=== PATIENT | male | born 1995 | race Caucasian/White ===

== ENCOUNTER 2018-04-24 17:47 | Emergency (ER) | payer MEDICAID ==
[2018-04-24 17:54] VITALS: BP 132/95
--- NOTE | 2018-04-24 19:08 | EDPHY ---
H & P Time Seen by Provider: 04/24/18 18:50 HPI/ROS: CHIEF COMPLAINT: Rectal pain and bleeding HISTORY OF PRESENT ILLNESS: Patient is a history of having anal fissure in the past although he presents with 1 which is more severe for the last 2-3 days. He had a bowel movement 3 days ago and had rectal pain followed by blood which was bright red in the toilet. This happened yesterday and then again today with a large amount of blood. Not associated with melena or vomiting or abdominal pain. No rectal trauma. No other sites of bleeding. REVIEW OF SYSTEMS: Eye: no change in vision ENT: No sore throat or earache, has noticed a lump on his neck posteriorly for the last 2 weeks. Cardiac: No chest pain Pulmonary: no cough or SOB Abdomen: HPI Musculoskeletal: no back pain Skin: no rash Neuro: no headache Constitutional: no fever : no urinary symptoms A comprehensive 10 point review of systems is otherwise negative aside from elements mentioned in the history of present illness. PAST MEDICAL HISTORY: Negative Social history: Nonsmoker General Appearance: Alert and conversant, cooperative. Eyes: No scleral icterus. ENT, Mouth: Normal mucous membranes. Normal tympanic membranes. 5 mm non painful mobile mass on the posterior cervical chain on the left side. No surrounding redness or tenderness or fluctuance. Respiratory: Normal respiratory effort, breath sounds equal, lungs are clear to auscultation. Cardiovascular: Regular rate and rhythm. Gastrointestinal: Abdomen is soft and non tender. Rectal exam shows anal fissure on the side of the anus near the perineum. Not actively bleeding. No perirectal induration or tenderness. Neurological: Alert, face symmetric, normal motor and sensory in extremities. Skin: Warm and dry, no rashes. Musculoskeletal: No peripheral edema. Psychiatric: Not agitated. Emergency Department course/MDM: Patient has very small neck mass that is more likely to be lymph node or small cyst, warned he needs to follow up in 2 weeks if still present to evaluate by ENT for the possibilities including but not limited to malignancy. Patient has anal fissure and repeat heart rate on my exam is around 80. I do not think clinically he has lost a lot of blood. Suspicion for acute lower GI bleed is low. Smoking Status: Never smoked Constitutional: Initial Vital Signs Temperature (C) 36.5 C 06/13/18 17:50 Heart Rate 112 H 04/24/18 17:50 Respiratory Rate 18 04/24/18 17:50 Blood Pressure 132/95 H 04/24/18 17:50 O2 Sat (%) 97 04/24/18 17:50 O2 Delivery Mode Room Air Allergies/Adverse Reactions: No Known Allergies Allergy (Unverified 08/11/16 15:52) Home Medications: Medication Instructions Recorded NK [No Known Home Meds] 04/24/18 Departure - Departure Disposition: Home, Routine, Self-Care Clinical Impression: Anal fissure Condition: Good Instructions: Anal Fissure (ED) Referrals: Toño Hong MD [Medical Doctor] - As per Instructions (Follow-up with ENT if the lump on your neck is still there in 2 weeks.) Titus Ny MD [Medical Doctor] - As per Instructions (Follow-up next week if you still have rectal pain or bleeding)
== END 2018-04-24 19:20 | disposition home or self-care (01) ==
DX: K60.2 Anal fissure, unspecified (principal)

== ENCOUNTER 2018-05-03 18:19 | Emergency (ER) | payer MEDICAID ==
[2018-05-03 18:23] VITALS: BP 141/88
--- NOTE | 2018-05-03 18:28 | EDPHY ---
H & P Stated Complaint: 2 days ago had intercourse with person who is + chlamydia Time Seen by Provider: 05/03/18 18:28 - Personal History Current Tetanus Diphtheria and Acellular Pertussis (TDAP): Yes - Medical/Surgical History Hx Asthma: No Hx Chronic Respiratory Disease: No Hx Diabetes: No Hx Cardiac Disease: No Hx Renal Disease: No Hx Cirrhosis: No Hx Alcoholism: No Hx HIV/AIDS: No Hx Splenectomy or Spleen Trauma: No Other PMH: Denies. - Social History Smoking Status: Never smoked Constitutional: Initial Vital Signs Temperature (C) 37.2 C 05/03/18 18:21 Heart Rate 108 H 05/03/18 18:21 Respiratory Rate 18 05/03/18 18:21 Blood Pressure 141/88 H 05/03/18 18:21 O2 Sat (%) 97 05/03/18 18:21 O2 Delivery Mode Room Air Allergies/Adverse Reactions: No Known Allergies Allergy (Verified 05/03/18 18:20) Home Medications: Medication Instructions Recorded Doxycycline Hyclate 100 mg PO BID #20 tablet 05/03/18 Medical Decision Making ED Course/Re-evaluation: CHIEF COMPLAINT: Exposure to chlamydia HISTORY OF PRESENT ILLNESS: The patient is a 23 y/o male complaining of exposure to chlamydia. Two days ago he had protected sex with his partner. During this evening he was wearing a condom, but did preform oral sex on his partner. The tip of his unprotected penis also touched her clitoris. Yesterday, his partner was tested for STI's as she had a burning sensation while urinating; she was diagnosed with chlamydia. Today, the patient was informed of his partner's STI status. He denies a burning sensation while urinating or sores on his genitals. He has been more sexually active recently and believes he is having more pre-cum than normal. Denies having vaccinations for STI's. Denies chest pain, shortness of breath, abdominal pain, numbness, fever. REVIEW OF SYSTEMS: A 10 point review of systems was performed and is negative with the exception of the elements mentioned in the history of present illness. PHYSICAL EXAM: HR, BP, O2 Sat, RR. Temp noted General Appearance: Alert, well hydrated, appropriate, and non-toxic appearing. Head: Atraumatic without scalp tenderness or obvious injury Eyes: Pupils equal, round, reactive to light and accommodation, EOMI, no trauma , no injection. Ears: Clear bilaterally, no perforation, normal landmarks Nose: Atraumatic, no rhinorrhea, clear. Throat: There is no erythema or exudates, no lesions, normal tonsils, mucus membranes moist. Neck: Supple, nontender, no lymphadenopathy. Respiratory: No retractions, no distress, no wheezes, and no accessory muscle use. Lungs are clear to auscultation bilaterally. Cardiovascular: Regular rate and rhythm, no murmurs, rubs, or gallops. Bilateral carotid, radial, dorsalis pedis, and posterior tibial pulses intact. Good capillary refill all extremities. Gastrointestinal: Abdomen is soft, nontender, non-distended, no masses, no rebound, no guarding, no peritoneal signs. Musculoskeletal: Normal active ROM of all extremities, atraumatic. Neurological: Alert, appropriate, and interactive. The patient has normal DTRs and non-focal cranial nerves, motor, sensory, and cerebellar exam. Skin: No rashes, good turgor, no nodules on palpation. Past medical history: Denies Past surgical history: Denies Family history: Denies Social history: Girlfriend at bedside, lives in [place], student at DIFFERENTIAL DIAGNOSIS: The differential diagnosis for the patient's exposure to chlamydia included but was not limited to STI, urinary tract infection, viral syndrome, meningitis, and sepsis. MEDICAL DECISION MAKING: The patient is a 23 y/o male presenting with exposure to chlamydia after having semi-unprotected sex with a partner that was recently diagnosed with chlamydia. He has a normal physical exam. Reassessed patient and discussed doxycycline prescription; his first dose was given prior to discharge. Return precautions provided; patient is comfortable with this plan. - Data Points Medications Given: Discontinued Medications Doxycycline Hyclate (Doxycycline Hyclate) 100 mg PO EDNOW ONE PRN Reason: Protocol Stop: 05/03/18 18:36 Last Admin: 05/03/18 18:40 Dose: 100 mg Departure - Departure Disposition: Home, Routine, Self-Care Clinical Impression: Chlamydia contact, Exposure to sexually transmitted disease (STD) Condition: Good Instructions: Chlamydia (ED), Sexually Transmitted Diseases (ED), Safe Sex (ED) Additional Instructions: 1. Take Doxycycline as prescribed. This will make you sensitive to the sun. 2. Follow-up with your primary doctor within 72 hours. 3. Return to the Emergency Department for fever, chest pain, shortness of breath , increasing pain or other worsening of condition. Referrals: [facility],. [Clinic] - As per Instructions [facility],. [Clinic] - As per Instructions Prescriptions: Doxycycline Hyclate 100 mg PO BID #20 tablet Report Scribed for: Manav Brown Report Scribed by: Tory Murphy Date of Report: 05/03/18 Time of Report: 18:29
[2018-05-03] MEDS ORDERED: DOXYCYCLINE HYCLATE 100 MG CAP/TAB PO ONE (18:35)
== END 2018-05-03 18:45 | disposition home or self-care (01) ==
DX: Z20.2 Contact with and (suspected) exposure to infections with a predominantly sexual mode of transmission (principal)

== ENCOUNTER 2018-10-08 16:41 | Emergency (ER) | payer MEDICAID ==
[2018-10-08] MEDS ORDERED: AZITHROMYCIN 250 MG TAB PO ONE (16:52)
[2018-10-08] MEDS ORDERED: metroNIDAZOLE 500 MG TAB PO ONE (17:00)
--- NOTE | 2018-10-08 17:00 | EDPHY ---
H & P Time Seen by Provider: 10/08/18 16:50 HPI/ROS: CHIEF COMPLAINT: "I think I have an STD" HISTORY OF PRESENT ILLNESS: 23-year-old immunocompetent male lasted unprotected male female sexual intercourse 1 week ago, received a text message from this female stating that she tested positive for Trichomonas today. He also describes dysuria and urethral discharge since last evening. No hematuria. No increased urinary frequency. No abdominal pain. No back or flank pain. No rash. PHYSICAL EXAM (Prior to examination, patient consented to physical exam, hands were washed and my usual and customary physical exam procedures followed) 1) GENERAL: Well-developed, well-nourished, alert and oriented. Appears to be in no acute distress. 2) HEAD: Normocephalic 3) HEENT: sclera anicteric 4) LUNGS: Breathing comfortably. 5) : Circumcised, normal male external genitalia, no urethral discharge, no lesions. No tenderness. Bilateral testicles nontender. Cremasteric reflex present and brisk. Smoking Status: Never smoked Constitutional: Initial Vital Signs Temperature (C) 36.4 C 10/08/18 16:44 Heart Rate 97 10/08/18 16:44 Respiratory Rate 17 10/08/18 16:44 Blood Pressure 127/91 H 10/08/18 16:44 O2 Sat (%) 96 10/08/18 16:44 O2 Delivery Mode Room Air Allergies/Adverse Reactions: No Known Allergies Allergy (Verified 10/08/18 16:43) Home Medications: Medication Instructions Recorded NK [No Known Home Meds] 10/08/18 MDM/Departure - [facility] ED Course/Re-evaluation: Patient describes unprotected male female sexual intercourse 1 week ago with dysuria and female partner who contact him today who tested positive for Trichomonas. Here in the ER the diagnostic studies have been obtained, he has been given Rocephin, azithromycin, 2 g of Flagyl . We discussed safer sex options. Usual and customary discharge precautions instructions provided. Care of patient under supervision of primary supervising physician Dr Booth with whom I discussed case. - Depart Disposition: Home, Routine, Self-Care Clinical Impression: Exposure to STD Condition: Good Instructions: Sexually Transmitted Diseases (ED) Referrals: [facility],. [Clinic] - 2-3 days, call for appt.
[2018-10-08 17:38] VITALS: BP 122/78
[2018-10-09 12:31] LABS: GC AMPLIFICATION GENPROBE NEGATIVE (NEGATIVE)
== END 2018-10-08 17:51 | disposition home or self-care (01) ==
DX: Z20.2 Contact with and (suspected) exposure to infections with a predominantly sexual mode of transmission (principal)
CPT/HCPCS: J0696

== ENCOUNTER 2019-03-26 17:37 | Emergency (ER) | payer MEDICAID ==
[2019-03-26] MEDS ORDERED: LIDOCAINE 2% JELLY 20 ML (UROJECT) UR ONE (18:13)
[2019-03-26] MEDS ORDERED: LET GEL TOPICAL 1 EA SYR TP ONE (18:14)
--- NOTE | 2019-03-26 18:14 | EDPHY ---
H & P Stated Complaint: Constipation, Hx of anal fissure, feels similar Time Seen by Provider: 03/26/19 18:11 HPI/ROS: HPI: This is a 23-year-old male who presents with Chief Complaint: Constipation, rectal irritation and pain Location:rectum Quality: Irritation and pain Duration: 2-3 days Signs and Symptoms: no fever, no nausea, no vomiting, no hematemesis, no blood in stool, no abdominal bloating, no diarrhea, no back pain, no urinary symptoms , no testicular/groin pain, no indigestion, no chest pain, no shortness of breath Timing: Gradual onset Severity: Moderate Context: Patient reports that he has a history of chronic constipation, anal fissures presents with complaints of irritation around his rectal area for the last 2-3 days. He reports that he was constipated approximately 5 days ago but threw changing his diet, increase in his fluids and taking [id number] MiraLax he has had bowel movements the last 3 days. Yesterday while having a bowel movement he felt that he was straining and there was some bright red blood on toilet paper when he wiped. Denies any history of hemorrhoids. Today he had a bowel movement and denies any blood in his stool. Patient is going to [place] tomorrow and "wants to be checked out."No history of Crohn's disease or ulcerative colitis. Eating and drinking without difficulty. Modifying Factors: None Comment: ROS: A comprehensive 10 system review of systems is otherwise negative aside from elements mentioned in the history of present illness. MEDICAL/SURGICAL/SOCIAL HISTORY: Medical history: Anal fissures, chronic constipation Surgical history: Denies Social history: Denies tobacco use. Drinks alcohol socially. Family history noncontributory. CONSTITUTIONAL: Extremely well-appearing young adult male, awake and alert, no obvious distress HEENT: Atraumatic and normocephalic, PERRL, EOMI. Nares patent; no rhinorrhea; no nasal mucosal edema. Tympanic membranes clear. Oropharynx clear, no exudate and moist pink mucosa. Airway patent. No lymphadenopathy. No meningismus. Cardiovascular: Normal S1/S2, tachycardia, regular rhythm, without murmur rub or gallop. PULMONARY/CHEST: Symmetrical and nontender. Clear to auscultation bilaterally. Good air movement. No accessory muscle usage. ABDOMEN: Soft, nondistended, nontender, no rebound, no guarding, no peritoneal signs, no masses or organomegaly. No CVAT. RECTAL: Mild superficial perirectal skin irritation noted but no actual skin breakdown/fluctuance, Good sphincter tone, light brown stool in vault, no external hemorrhoids, no fissures, no palpable masses, guaiac negative EXTREMITIES: 2/2 pulses, strength 5/5, no deformities, no clubbing, no cyanosis or edema. NEUROLOGICAL: no focal neuro deficits. GCS 15. SKIN: Warm and dry, no erythema. no rash. Good capillary refill. Source: Patient Exam Limitations: No limitations - Personal History Current Tetanus Diphtheria and Acellular Pertussis (TDAP): Unsure - Medical/Surgical History Hx Asthma: No Hx Chronic Respiratory Disease: No Hx Diabetes: No Hx Cardiac Disease: No Hx Renal Disease: No Hx Cirrhosis: No Hx Alcoholism: No Hx HIV/AIDS: No Hx Splenectomy or Spleen Trauma: No Other PMH: anal fissures - Social History Smoking Status: Never smoked Constitutional: Initial Vital Signs Temperature (C) 36.8 C 03/26/19 17:40 Heart Rate 105 H 03/26/19 17:40 Respiratory Rate 18 03/26/19 17:40 Blood Pressure 138/86 H 03/26/19 17:40 O2 Sat (%) 95 03/26/19 17:40 O2 Delivery Mode Room Air Allergies/Adverse Reactions: No Known Allergies Allergy (Verified 10/08/18 16:43) Home Medications: Medication Instructions Recorded BIOTIN 03/26/19 Hydrocortisone Acetate 25 mg NM Q6 PRN #7 supp 03/26/19 [Hemorrhoidal Hc 25 mg supp (*)] Medical Decision Making ED Course/Re-evaluation: Rectal exam performed which shows no anal fissure, pilonidal cyst, thrombosed external hemorrhoid. guaiac negative at bedside. Abdomen is soft and nontender and doubt surgical process or need for imaging. LET applied with adequate relief of rectal irritation and discomfort. Patient given a prescription for Anusol HC suppositories and counseled on Sitz baths, high-fiber diet, stool softeners, laxatives. Gastroenterology follow-up as needed. This patient was seen under the supervision of my secondary supervising physician. I evaluated and cared for this patient with attending. Differential Diagnosis: Differential diagnosis includes but is not limited to constipation, rectal impaction, hemorrhoids, thrombosed hemorrhoids, anal cancer, anal fissure. Departure - Departure Disposition: Home, Routine, Self-Care Clinical Impression: Rectal irritation Condition: Good Instructions: Rectal Pain (ED), Anal Fissure (ED), Rectal Bleeding (ED) Additional Instructions: Consume a minimum of 8-10 glasses of water or electrolyte fluid replacement drinks that include Gatorade, Powerade, Pedialyte. Eat a diet high in fiber including fruits and vegetables. Take MiraLax daily as needed for constipation. Perform sitz bath 2-3 times daily as needed for rectal irritation. Insert Anusol HC suppositories every 6 hours as needed for rectal pain. Follow-up with Gastroenterology in the next 1-2 weeks if symptoms persist. Referrals: Joby Mckeon MD [Medical Doctor] - As per Instructions Prescriptions: Hydrocortisone Acetate [Hemorrhoidal Hc 25 mg supp (*)] 25 mg NM Q6 PRN #7 supp PRN Reason: Pain, Hemorrhoid
[2019-03-26 18:51] VITALS: BP 128/78
== END 2019-03-26 18:49 | disposition home or self-care (01) ==
DX: K62.89 Other specified diseases of anus and rectum (principal); K59.09 Other constipation